=== PATIENT | female | born 1975 | race Caucasian/White ===

== ENCOUNTER 2024-09-08 22:16 | Emergency (ER) | payer MEDICAID, OTHER ==
[~2024-09-08] VITALS: Ht 157.5 cm; Wt 72.7 kg
[~2024-09-08 22:16] MED LIST: CLIN-97 PO; IBUP-1985 PO
[2024-09-08 22:27] VITALS: TEMP 98
[2024-09-08] MEDS ORDERED: MECL-226 PO (23:38)
[2024-09-08 23:54] VITALS: PULSE 117; RESP 12; O2SAT 98
== END 2024-09-08 23:58 | disposition home or self-care (01) ==
LOC: ER 22:16
DX: H81.10 Benign paroxysmal vertigo, unspecified ear (principal); Z88.0 Allergy status to penicillin; Z88.1 Allergy status to other antibiotic agents
CPT/HCPCS: 71045; 93005; 99283; 99284

== ENCOUNTER 2025-02-23 18:16 | Emergency (ER) | payer OTHER ==
[~2025-02-23] VITALS: Ht 157.5 cm; Wt 86.0 kg
[~2025-02-23 18:16] MED LIST changes: +MECL-226 PO
[2025-02-23 19:50] VITALS: BP 145/84; PULSE 78; TEMP 97.9; O2SAT 98
[2025-02-23 20:03] VITALS: RESP 12
--- NOTE | 2025-02-23 21:57 | Physician Documentation ---
History of Present Illness ~ Chief Complaint: Dizziness Stated Complaint: DIZZY VOMITING Time Seen by MD: 21:56 Primary Medical Doctor: [facility] Mode of Arrival: POV HPI Patient presented to the emergency room with sudden onset vertigo after taking a nap. Symptoms are exacerbated with head movement relieved by keeping head still. Similar episode previously which resolved with Jesus maneuver. Reports no one-sided weakness. Positive nausea Medication Reconciliation Allergies: Coded Allergies: Penicillins (Verified Allergy, Unknown, 02/23/25) amoxicillin (Verified Allergy, Unknown, 02/23/25) erythromycin base (Verified Allergy, Unknown, 02/23/25) Uncoded Allergies: CILLINS (Allergy, Unknown, 04/06/14) Scheduled Clindamycin HCL* (Clindamycin HCL*), 1 CAP PO Q6H Meclizine HCl (Meclizine HCl), 1-2 TAB PO Q8H Scheduled PRN Ibuprofen (Ibuprofen), 600 MG PO Q6H PRN for pain Past Medical History Past Medical History: MRSA Abscess Past Surgical History: no surgical history Alcohol Use: None Drug Use: none Review of Systems ROS All review of systems negative except as per HPI Physical Exam Vital Signs: Temperature: 97.9, Source: Oral, Heart Rate: 78, Respiratory Rate: 12, BP: 145/84, Pulse Oximetry: 98, Weight: 85.950 Oxygen Flow Rate: 0 Physical Exam General: Patient is awake, alert, oriented x4 in no acute distress Head: Normocephalic and atraumatic. Eyes: Conjunctival normal. EOMI. PERRL. ENT: Mucous membranes moist. Neck: Supple, trachea is midline. Chest: Clear to auscultation bilaterally without rales, rhonchi, or wheezes. There is no accessory muscle use or retractions. Cardiac: RRR without murmurs, gallops, or rubs. Neuro: Cranial nerves II-XII grossly intact. No focal neuro deficits. Positive Bingham-Hallpike maneuver Progress Results/Orders Results/Orders Completed Orders - ARI GOODMAN MD Ondansetron Disint. Tablet (Zofran Odt T (02/23/25 22:00) Meclizine Tablets (Antivert Tablet) (02/23/25 22:00) Vital Signs 02/23/25 02/23/25 02/23/25 18:18 19:50 20:03 Temp 97.9 97.9 Pulse 78 78 Resp 18 14 12 B/P (MAP) 170/90 145/84 (104) Pulse Ox 100 98 O2 Flow Rate 0 0 Medical Decision Making Findings Patient presented to the emergency room with chief complaint of dizziness. Differentials include but are not limited to vasovagal, benign positional vertigo labyrinthitis stroke. Symptoms represent classic benign positional ve rtigo. Antivert and anti nausea medication administered. While waiting for an opportunity to perform Jesus maneuver patient eloped. Departure Disposition: 07 LEFT AWOL/ELOPED Impression: Primary Impression: Benign positional vertigo Referrals: NO PRIMARY CARE PROVIDER (PCP) Signature Scribe Signature: No scribe Attestation: The note accurately reflects work and decisions made by me.Ari Goodman MD 02/24/25 20:22 ARI GOODMAN MD Feb 23, 2025 21:57
[2025-02-23] MEDS: ondansetron 4mg rapidly disintigrating tab PO ONE (22:14)
== END 2025-02-23 22:53 | disposition left against medical advice (07) ==
LOC: ER 18:16
DX: H81.10 Benign paroxysmal vertigo, unspecified ear (principal); Z88.0 Allergy status to penicillin; Z88.1 Allergy status to other antibiotic agents
CPT/HCPCS: 99283; J8597